=== PATIENT | male | born 1970 | race Caucasian/White ===

== ENCOUNTER 2018-03-07 09:05 | Emergency (ER) | payer OTHER ==
[2018-03-07] MEDS ORDERED: Sodium Chloride 0.9% 1,000 ML IV ONE (09:20)
[2018-03-07] MEDS ORDERED: ceFAZolin 1 GM Vial ONE (09:22)
[2018-03-07] MEDS ORDERED: Diazepam 5 MG Tab ONE (09:22)
[2018-03-07] MEDS ORDERED: Ondansetron 4 MG/2 ML SDV ONE (09:22)
[2018-03-07] MEDS ORDERED: HYDROmorphone 1 MG/ML Syringe ONE ×4 (09:22→10:38)
[2018-03-07] MEDS ORDERED: LORazepam 2 MG/ML SDV ONE (09:22)
[2018-03-07] MEDS ORDERED: Sodium Chloride 0.9% 10 ML Syringe ONE (09:22)
[2018-03-07] MEDS ORDERED: Potassium Chloride 20 MEQ Tab.ER ONE (09:22)
[2018-03-07 09:43] LABS: CHLORIDE,CL 103 mmol/L (98-107); SODIUM,NA 138 mmol/L (136-145)
--- NOTE | 2018-03-07 10:55 | EDM.PDOC ---
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 Ladder was 8 feet tall, but patient was only half way up the ladder at time of incident. Main problem was that his right foot was caught in the ladder when it hit the ground. [place]/heard "pop" in ankle area of right foot. Denies numbness or tingling. Has open wound medial ankle region. Denies other injuries/pain/problems during ROS. History of Factor V deficiency, takes Warfarin daily. Also history of of multiple myeloma that is currently in remission. Past Medical History Cardiovascular History: Reports: Blood Clots/VTE/DVT Hematologic History: Reports: Anticoagulation Therapy, Bleeding Disorder, Other (See Below) (Factor V deficiency) Oncologic (Cancer) History: Reports: Other (See Below) (Multiple Myeloma) Review of Systems - Review of Systems Review Of Systems: See Below Constitutional: Reports: No Symptoms Eyes: Denies: Blurred Vision, Decreased Acuity, Foreign Body Sensation, Pain, Photophobia, Vision Change Ears: Reports: No Symptoms Nose: Reports: No Symptoms Mouth/Throat: Reports: No Symptoms Respiratory: Reports: No Symptoms. Denies: Shortness of Breath Cardiovascular: Reports: No Symptoms. Denies: Chest Pain GI/Abdominal: Reports: No Symptoms. Denies: Abdominal Pain Genitourinary: Reports: No Symptoms Musculoskeletal: Reports: Foot Pain, Joint Pain. Denies: Neck Pain, Shoulder Pain, Arm Pain, Back Pain, Hand Pain, Leg Pain Skin: Reports: Wound (right medial foot) Neurological: Reports: No Symptoms, Other (No LOC). Denies: Syncope Psychiatric: Reports: No Symptoms ED EXAM, GENERAL - Physical Exam Exam: See Below General Appearance: Alert, WD/WN, Moderate Distress Eye Exam: Bilateral Eye: EOMI, PERRL Ears: Normal External Exam, Normal Canal Nose: Normal Inspection Throat/Mouth: Normal Inspection, Normal Lips, Normal Voice, No Airway Compromise Head: Atraumatic, Normocephalic Neck: Normal Inspection, Supple, Non-Tender, Full Range of Motion Respiratory/Chest: No Respiratory Distress, Lungs Clear, Normal Breath Sounds, No Accessory Muscle Use, Chest Non-Tender Cardiovascular: Normal Peripheral Pulses, Regular Rate, Rhythm, No Edema, No Murmur Peripheral Pulses: 2+: Radial (L), Radial (R), Dorsalis Pedis (R) GI/Abdominal: Normal Bowel Sounds, Soft, Non-Tender, No Distention (Male) Exam: Deferred Rectal (Males) Exam: Deferred Back Exam: No: CVA Tenderness (L), CVA Tenderness (R), Muscle Spasm, Paraspinal Tenderness, Vertebral Tenderness Extremities: Other (Right ankle area tender, open wound medially) Neurological: Alert, Oriented, CN II-XII Intact, Normal Cognition, No Motor/ Sensory Deficits (except for pain limitation right foot/ankle) Psychiatric: Anxious Skin Exam: Warm, Dry Course - Orders/Labs/Meds Orders: Active Orders 24 hr Category Date Time Status Ankle 2V Rt [CR] Routine Exams 03/07/18 09:30 Taken Ankle wo Cont Rt [CT] Routine Exams 03/07/18 09:33 Taken Labs: Laboratory Tests 03/07/18 03/07/18 03/07/18 Range/Units 09:26 09:26 09:26 WBC 6.5 (4.0-10.2) K/uL RBC 3.63 L (4.33-5.41) M/uL Hgb 12.6 L (13.1-16.8) g/dL Hct 35.5 L (39.0-49.0) % MCV 97.8 (84.0-98.0) fL MCH 34.7 H (28.2-33.3) pg MCHC 35.5 (31.7-36.0) g/dL RDW 11.5 (11.2-14.1) % Plt Count 158 (150-350) K/uL Neut % (Auto) 72.1 (45.0-80.0) % Lymph % (Auto) 18.8 (10.0-50.0) % [place] % (Auto) 8.1 (2.0-14.0) % Eos % (Auto) 0.8 (0.0-5.0) % Baso % (Auto) 0.2 (0.0-2.0) % Neut # (Auto) 4.71 (1.40-7.00) K/uL Lymph # (Auto) 1.23 (0.50-3.50) K/uL [place] # (Auto) 0.53 (0.00-1.00) K/uL Eos # (Auto) 0.05 (0.00-0.50) K/uL Baso # (Auto) 0.01 (0.00-0.20) K/uL PT 16.5 H (9.8-11.7) SEC INR 1.5 Sodium 138 (136-145) mmol/L Potassium 3.2 L (3.5-5.1) mmol/L Chloride 103 (98-107) mmol/L Carbon Dioxide 20.7 L (21.0-32.0) mmol/L BUN 14 (7-18) mg/dL Creatinine 1.08 (0.51-1.17) mg/dL Est Cr Clr Drug Dosing TNP Estimated GFR (MDRD) > 60 mL/min Glucose 164 H (74-106) mg/dL Calcium 8.7 (8.5-10.1) mg/dL Total Bilirubin 0.6 (0.2-1.0) mg/dL AST 28 (15-37) U/L ALT 34 (12-78) U/L Alkaline Phosphatase 48 (46-116) IU/L Total Protein 7.8 (6.4-8.2) g/dL Albumin 4.0 (3.4-5.0) g/dL Meds: Medications Discontinued Medications Generic Name Dose Route Start Last Admin Trade Name Freq PRN Reason Stop Dose Admin Cefazolin Sodium Confirm 03/07/18 09:48 Ancef Administered 03/07/18 09:49 Dose 1 gm .ROUTE .STK-MED ONE Diazepam Confirm 03/07/18 10:26 Valium. Administered 03/07/18 10:27 Dose 5 mg .ROUTE .STK-MED ONE Hydromorphone HCl Confirm 03/07/18 09:25 Dilaudid Administered 03/07/18 09:26 Dose 1 mg .ROUTE .STK-MED ONE Hydromorphone HCl Confirm 03/07/18 09:42 Dilaudid Administered 03/07/18 09:43 Dose 1 mg .ROUTE .STK-MED ONE Hydromorphone HCl Confirm 03/07/18 10:36 Dilaudid Administered 03/07/18 10:37 Dose 1 mg .ROUTE .STK-MED ONE Lorazepam Confirm 03/07/18 09:29 Ativan Administered 03/07/18 09:30 Dose 2 mg .ROUTE .STK-MED ONE Potassium Chloride Confirm 03/07/18 10:27 Klor-Con M20 Administered 03/07/18 10:28 Dose 40 meq .ROUTE .STK-MED ONE - Radiology Interpretation Free Text/Narrative:: CT confirmed calcaneus fracture CT Results Date: 03/07/18 CT Results Time: 10:44 - Re-Assessments/Exams Free Text/Narrative Re-Assessment/Exam: Patient received IV fluids, Zofran, Dilaudid initially. Plain films of right ankle taken followed by CT. Fracture of calcaneus confirmed. IV Ancef given. Patient noted to have hypokalemia. Potassium given. Ativan helped patient's anxiety. He was noted to have some muscle spasms. Prior to transfer additional pain medications were given as well as PO Valium and Magnesium Oxide. Pain significantly improved. Mild hypotension noted after initial medications given. Improved with IV NS. Transfer to [place] per patient request was attempted, however [facility] did not feel comfortable treating the patient given his Factor V and MM history. at [facility] in [place] did ultimately accept the patient. He was transferred by ground ambulance to their facility for further care. Patient did have some bleeding from the open fracture wound medial right foot, but this was mild and was overall controlled well with pressure dressing. Departure - Departure Time of Disposition: 10:40 Disposition: DC/Tfer to Acute Hospital 02 Condition: Good Clinical Impression: Open fracture of right calcaneus Qualifiers: Encounter type: initial encounter Calcaneus location: unspecified portion of calcaneus Fracture alignment: displaced Qualified Code(s): S92.001B - Unspecified fracture of right calcaneus, initial encounter for open fracture - Discharge Information Referrals: PCP,Unknown [Primary Care Provider] - - My Orders Last 24 Hours: My Active Orders 03/07/18 09:30 Ankle 2V Rt [CR] Routine 03/07/18 09:33 Ankle wo Cont Rt [CT] Routine - Assessment/Plan Last 24 Hours: My Active Orders 03/07/18 09:30 Ankle 2V Rt [CR] Routine 03/07/18 09:33 Ankle wo Cont Rt [CT] Routine
[2018-03-07] MEDS: LORazepam 2 MG/ML SDV ONE (14:24)
[2018-03-07] MEDS: ceFAZolin 1 GM Vial ONE (14:24)
[2018-03-07] MEDS: Potassium Chloride 20 MEQ Tab.ER ONE (14:25)
[2018-03-07] MEDS: HYDROmorphone 1 MG/ML Syringe ONE ×3 (14:25)
[2018-03-07] MEDS: Diazepam 5 MG Tab ONE (14:26)
== END 2018-03-07 10:42 ==
LOC: LL.ED 09:19
DX: S92.001B Unspecified fracture of right calcaneus, initial encounter for open fracture (principal); E87.6 Hypokalemia; W11.XXXA Fall on and from ladder, initial encounter; Y99.0 Civilian activity done for income or pay; Z79.01 Long term (current) use of anticoagulants
CPT/HCPCS: 36415; 73600-RT; 73700-RT; 80053; 85025; 85610; 96361; 96374; 96375; 99291; 99292; A9270-GY; J0690; J1170; J2060; J2405; J7030; J7050